=== PATIENT | male | born 1955 | race Caucasian/White ===

== ENCOUNTER 2020-11-25 06:45 | Outpatient (RCR) | payer OTHER, SELFPAY ==
[2015-05-02 16:17] VITALS: BMI 39.6
[2020-11-25] MEDS: COVID-19 VACC, MRNA(PFIZER)/PF 30 MCG/0.3 ML SYRINGE IM (14:32)
[2020-12-16] MEDS: COVID-19 VACC, MRNA(PFIZER)/PF 30 MCG/0.3 ML SYRINGE IM (14:13)
== END 2021-02-21 23:59 ==
LOC: IMMUN 06:45
PROVIDERS: PCP Family Medicine; Referring Provider Family Medicine; Visit Provider Family Medicine
DX: Z23 Encounter for immunization (principal)
CPT/HCPCS: 0001A; 0002A; 91300

== ENCOUNTER 2021-07-04 06:24 | Day surgery (SDC) | payer OTHER, SELFPAY ==
[2021-07-04 06:51] VITALS: BP 116/69; PULSE 96; RESP 18; TEMP 36.6; O2SAT 100; BMI 36.0
[2021-07-04] MEDS: Lactated Ringers 1,000 ML 100 ML IV (07:02)
--- NOTE | 2021-07-04 07:30 | COLBX_PTH ---
PATIENT: HAILEY CEDILLO LOC: EN U#:[id number] AGE/SX: 66/M ROOM: RE07/04/[address]: Dr. Landon Haddad MD : 1955 BED: DIS: 07/04/2021 SPEC #: [id number] RECD: 07/04/21 11:39 STATUS: SEBASTIÁN REAfshan #: [id number] STELLA: 07/04/21 07:[address]: Landon Haddad DEPT: SURGICAL PATHOLOGY RECD BY: Jerrica Nath ENTERED: 07/04/21 12:56 SP TYPE: COLON BX OTHR DR: Dr. Cira Long MD Tissues: Sigmoid colon biopsy Procedures: Surgery Specimen Level IV HEADER OPERATION: Colonoscopy ? open access (MAC) PRE-OP DIAGNOSIS: Screening TISSUE SUBMITTED: Biopsy of sigmoid polyp MICROSCOPIC DIAGNOSIS Sigmoid polyp, biopsy: Tubular adenoma. SJ:mati 07/05/2021 MICROSCOPIC DESCRIPTION Slides are reviewed. GROSS DESCRIPTION Received in fixative is one container labeled with the patient's name and designated sigmoid polyp. The specimen consists of one irregular fragment of light haas soft tissue that measures 0.5 x 0.5 x 0.1 cm. The specimen is totally submitted in one cassette. / AM:mati 07/04/21 TC:1 CPT: 24663
[2021-07-04 07:55] VITALS: BP 113/82; BP 116/69; PULSE 78; RESP 16; TEMP 36.2; O2SAT 93
--- NOTE | 2021-07-04 07:58 | HP.PCM_ITS ---
HPI - General HPI Narrative HAILEY CEDILLO, is a 66 M who presents for screening colonoscopy. Patient has never had a colonoscopy in the past. He denies any abdominal pain or blood in his stool. He has no family history of colon cancer. [facility] Medical History (Updated 06/29/21 @ 10:34 by Angela Kidd) Atherosclerotic heart disease of [place] coronary artery without angina pectoris Back pain Cardiology follow-up encounter Diabetes Essential hypertension First degree AV block High cholesterol History of stress test Hypertension Hypothyroidism Non-smoker Presence of stent in coronary artery (~07/02/06) Pure hypercholesterolemia Thyroid disease Type 2 diabetes mellitus Wears glasses Home Medications aspirin 81 mg tablet,delayed release 81 mg PO DAILY #1 tab 03/02/21 [Rx Last Taken Unknown] levothyroxine 125 mcg tablet 125 mcg PO DAILY #1 tab 03/02/21 [Rx Last Taken 07/04/21 05:45 125 mcg] metoprolol succinate 50 mg tablet,extended release 24 hr 50 mg PO DAILY #1 tab 03/02/21 [Rx Last Taken 07/04/21 05:45 50 mg] nitroglycerin 0.4 mg sublingual tablet 0.4 mg SUBLINGUAL Q5-15M PRN #1 tab 03/16/21 [Rx Last Taken Unknown] atorvastatin 80 mg tablet 40 mg PO QHS #90 tab 05/10/21 [Rx Last Taken Unknown] lisinopril 20 mg-hydrochlorothiazide 12.5 mg tablet 1 tab PO DAILY #90 tab 05/10/21 [Rx Last Taken Unknown] Allergy/AdvReac Type Severity Reaction Status Date / Time Penicillins Allergy Unknown Unknown Verified 07/04/21 06:48 Family History Mother Diabetes Brother CAD (coronary artery disease) History of coronary artery bypass surgery, Onset Age: 44 Father CAD (coronary artery disease) Stents Hypertension Sister Multiple sclerosis Surgical History (Updated 06/29/21 @ 10:34 by Angela Kidd) History of cardiac catheterization History of vasectomy Presence of coronary angioplasty implant and graft (~07/02/06) Social History (Updated 04/24/21 @ 13:14 by Arpita Walker) Smoking Status: Never smoker alcohol intake: current details: occasional substance use type: does not use caffeine: Yes what type of physical activity do you participate in: walking Past Medical/Surgical History Planned Operation Planned Operative Procedure/s: CSCOPE Previous Hospitalizations/Surgeries HX Hospitalizations: No Any Problems With Anesthesia: No You/Your Family Experience Fever (Hyperthermia) With Anes: No Cholinesterase deficiency: No Cardiovascular Hx Hypertension: Yes (CONTROLLED WITH MED) Respiratory Hx Sleep Apnea: No Hx Respiratory Tract Infection/Cold (presently): No Do You Snore Loudly (louder than talking or can be heard): No Do You Often Feel Tired/ Fatigued/ Sleepy [place] Daytime?: No Has Anyone Observed You Stop Breathing During Sleep?: No Result (for STOP score): Negative Smoking Status: Never smoker Gastrointestinal Special diet followed at home: No Neurological Does patient have nerve stimulator: No Blood Disorder Hx High Cholesterol: Yes Reproduction : No Miscellaneous Recent Exposure to Contagious Disease: No Allergies Penicillins Allergy (Unknown, Verified 07/04/21 06:48) Unknown Discharge Is Pt Admitted From a Jail, or a Half-Way: No After D/C, Where Do you Plan to Go: Return Home Vital Signs Vital Signs Vital Signs: 07/04/21 06:50 07/04/21 06:51 Temperature 97.8 F Temperature Source Temporal Pulse Rate 96 Respiratory Rate 18 Respiratory Pattern Normal Blood Pressure 116/69 Blood Pressure Mean 84 Blood Pressure Source Monitor Blood Pressure Position Semi-Fowlers Blood Pressure Location Left Arm Pulse Ox 100 Oxygen Delivery Method Room Air Weight Weight: 223 lb 1.725 oz Body Mass Index (BMI) 36.0 Physical Exam Const alert and oriented x3 Resp normal respiratory effort and normal air movement Cardio regular rate and regular rhythm GI soft to palpation, non-tender and non-distended Assessment & Plan Assessment/Plan (1) Colon cancer screening: PLAN: I explained endoscopy in detail to the patient. I explained the risks including but not limited to stroke or heart attack with anesthesia, perforation of the GI tract, bleeding, infection. I explained that any of these could necessitate further emergency surgery. The patient understands and all questions were answered sufficiently. The patient wishes to proceed with procedure. Landon Haddad MD Pager: [facility] [address] [place] [address], [address] [place] [address] Office: Surgery Risks - Colonoscopy Risks Include but are not Limited To: Risks include but are not limited to: Bleeding, perforation requiring further surgery, inability to complete colonoscopy requiring barium enema.
[2021-07-04 08:00] VITALS: BP 116/69; BP 86/72; PULSE 77; RESP 18; O2SAT 95
--- NOTE | 2021-07-04 08:03 | OP.COLON_ITS ---
Patient Name: Daniel Grossman Procedure Date: 07/04/2021 6:56 AM Date of : 1955 Age: 66 Procedure: Colonoscopy Indications: Screening for colorectal malignant neoplasm Providers: Landon Haddad MD Referring MD: Landon Haddad MD Medicines: Monitored Anesthesia Care Patient Profile: This is a 66 year old male. Refer to note in patient chart for documentation of history and physical. Last Colonoscopy: none. The patient's first colonoscopy is today. Complications: No immediate complications. Procedure: Pre-Anesthesia Assessment: - Prior to the procedure, a History and Physical was performed, and patient medications and allergies were reviewed. The patient's tolerance of previous anesthesia was also reviewed. The risks and benefits of the procedure and the sedation options and risks were discussed with the patient. All questions were answered, and informed consent was obtained. Prior Anticoagulants: The patient has taken no previous anticoagulant or antiplatelet agents. After reviewing the risks and benefits, the patient was deemed in satisfactory condition to undergo the procedure. After I obtained informed consent, the scope was passed under direct vision. Throughout the procedure, the patient's blood pressure, pulse, and oxygen saturations were monitored continuously. The pediatric colonoscope was introduced through the anus and advanced to the cecum, identified by appendiceal orifice and ileocecal valve. The colonoscopy was performed without difficulty. The patient tolerated the procedure well. The quality of the bowel preparation was good. Scope In: 7:41:59 AM Scope Withdrawal Time 0 hours 6 minutes 1 second Scope Out: 7:53:09 AM Total Procedure Duration Time 0 hours 11 minutes 10 seconds Findings: A small polyp was found in the sigmoid colon. The polyp was removed with a cold biopsy forceps. Resection and retrieval were complete. The exam was otherwise without abnormality on direct and retroflexion views. Impression: - One small polyp in the sigmoid colon, removed with a cold biopsy forceps. Resected and retrieved. - The examination was otherwise normal on direct and retroflexion views. Recommendation: - Discharge patient to home. - Resume previous diet. - Continue present medications. - Await pathology results. - Repeat colonoscopy for surveillance based on pathology results. Procedure Code(s): --- Professional --- 45211, Colonoscopy, flexible; with biopsy, single or multiple Diagnosis Code(s): --- Professional --- Z12.11, Encounter for screening for malignant neoplasm of colon D12.5, Benign neoplasm of sigmoid colon CPT copyright 2017 [employer]. All rights reserved. The codes documented in this report are preliminary and upon pharmacy services representative review may be revised to meet current compliance requirements. Landon Haddad MD 07/04/2021 8:02:52 AM This report has been signed electronically. Number of Addenda: 0 Note Initiated On: 07/04/2021 6:56 AM
--- NOTE | 2021-07-04 08:04 | OP.CCLET_ITS ---
07/04/2021 Cira Long [facility] [address] [place] [address] Re : Colonoscopy procedure for Daniel Grossman Dear Dr. Long This procedure was performed on Sunday, July 04, 2021. My impressions and recommendations are as follows: Impressions : - One small polyp in the sigmoid colon, removed with a cold biopsy forceps. Resected and retrieved. - The examination was otherwise normal on direct and retroflexion views. Recommendations : - Discharge patient to home. - Resume previous diet. - Continue present medications. - Await pathology results. - Repeat colonoscopy for surveillance based on pathology results. My findings are described in the full procedure note, which is enclosed. If I can be of further assistance, please feel free to contact me at Doctor phone number(s): , Work: . Sincerely, Landon Haddad MD 07/04/2021 8:02:52 AM This report has been signed electronically.
[2021-07-04 08:05] VITALS: BP 116/69; BP 88/59; PULSE 78; RESP 18; O2SAT 95
[2021-07-04 08:10] VITALS: BP 116/69; BP 94/64; PULSE 74; RESP 18; TEMP 36.6; O2SAT 95
[2021-07-04 08:35] VITALS: BP 116/69
== END 2021-07-04 08:36 ==
LOC: EN 06:28 → AC 06:28
PROVIDERS: PCP Internal Medicine; Referring Provider Surgery; Visit Provider Surgery
PROC: 0DJD8ZZ Inspection of Lower Intestinal Tract, Via Natural or Artificial Opening Endoscopic (ICD-10-PCS; CPT 45378; principal; 2021-07-04 07:25)
DX: Z12.11 Encounter for screening for malignant neoplasm of colon (principal); D12.5 Benign neoplasm of sigmoid colon; I25.10 Atherosclerotic heart disease of native coronary artery without angina pectoris; E11.9 Type 2 diabetes mellitus without complications; I10 Essential (primary) hypertension; E78.00 Pure hypercholesterolemia, unspecified; E03.9 Hypothyroidism, unspecified; Z79.82 Long term (current) use of aspirin; Z79.890 Hormone replacement therapy; Z79.899 Other long term (current) drug therapy; Z95.5 Presence of coronary angioplasty implant and graft
CPT/HCPCS: 45380; 88305; J7120; J2405

== ENCOUNTER 2021-12-11 09:23 | Outpatient (CLI) | payer OTHER, SELFPAY ==
[2021-12-11 12:13] LABS: Absolute Lymphocyte Count 2.77 X10^3/uL (0.83-4.51); Absolute Neutrophil Count 5.6 X10^3/uL (2.0-7.7); Basophil# 0.08 X10^3/uL; Basophil% 0.8 % (0-1); Eosinophil# 0.43 X10^3/uL; Eosinophils% 4.5 % (0-5); Hematocrit 45.3 % (40-54); Hemoglobin 14.7 g/dL (13.0-16.5); Lymphocyte # 2.77 X10^3/ul (0.83-4.51); Lymphocyte % 28.9 % (19-41); Mean Corp Hgb Conc 32.5 g/dL (32-36); Mean Corpuscular Hgb 28.8 pg (27.0-32.0); Mean Corpuscular Volume 88.6 fL (80-94); Mean Platelet Vol. 10.9 fl (6.2-12.0); Monocyte# 0.71 X10^3/uL; Monocyte% 7.4 % (0-10); NRBC Flagged by Analyzer 0 % (0-5); Neutrophil # 5.56 X10^3/uL (2.7-7.7); Neutrophil % 58.1 % (47-70); Platelet Count 380 K/mm3 (150-450); RBC Distribution Width SD 45.6 fl (35.1-43.9); Red Blood Count 5.11 M/mm3 (4.6-6.2); White Blood Count 9.6 K/mm3 (4.4-11.0)
[2021-12-11 12:44] LABS: Vitamin D,25 Hydroxy 34.7 ng/mL
[2021-12-11 12:48] LABS: Cholesterol 148 mg/dL (200); High Density Lipoprotein 42 mg/dL; Triglycerides 129 mg/dL; Very Low Density Lipoprotein 26 mg/dL (5-40)
[2021-12-11 12:49] LABS: Hemoglobin A1c 6.6 % (3.8-5.6)
[2021-12-11 13:18] LABS: ALB/GLOB Ratio 0.8 RATIO (0.9-2.4); AST(SGOT) 22 U/L (15-37); Alanine Aminotransfer ALT/SGPT 46 U/L (16-61); Albumin, Serum 3.3 g/dL (3.2-5.0); Alkaline Phosphatase 85 U/L (45-117); Anion Gap 6 (5-15); BUN 22 mg/dL (7-18); BUN/Creat Ratio 14.8 RATIO (10-20); Bilirubin, Direct 0.12 mg/dL (0.00-0.30); Calcium,Total 9.1 mg/dL (8.5-10.1); Chloride 106 mmol/L (98-107); Creatinine, Serum 1.49 mg/dL (0.70-1.30); EST Glomerular Filtration Rate 50 mL/min (>60); Est Glom Filt Rate - Afr Amer 61 mL/min (>60); Globulin 3.9 g/dL (2.2-4.2); Glucose 136 mg/dL (74-106); PSA,Total - Annual Screen 3.38 ng/mL (0.00-4.00); Potassium 4.3 mmol/L (3.5-5.1); Protein, Total 7.2 g/dL (6.4-8.2); Sodium Level 140 mmol/L (136-145); Thyroid Stim Hormone (TSH) 0.72 uIU/mL (0.358-3.74)
== END 2021-12-11 23:59 | disposition home or self-care (01) ==
LOC: BIMLAB 09:23
PROVIDERS: Internal Medicine Cardiovascular Disease; PCP Internal Medicine; Referring Provider Internal Medicine; Visit Provider Internal Medicine
DX: E03.9 Hypothyroidism, unspecified (principal); E11.9 Type 2 diabetes mellitus without complications; I10 Essential (primary) hypertension; I25.10 Atherosclerotic heart disease of native coronary artery without angina pectoris; E78.00 Pure hypercholesterolemia, unspecified; Z95.5 Presence of coronary angioplasty implant and graft; Z12.5 Encounter for screening for malignant neoplasm of prostate
CPT/HCPCS: 36415; 80053; 80061; 82248; 82306; 83036; 84153; 84443; 85025; G0103

== ENCOUNTER → 2023-08-20 | Outpatient (CLI) | payer BC, SELFPAY ==
[2023-08-20 11:29] LABS: Absolute Lymphocyte Count 3.19 X10^3/uL (0.83-4.51); Basophil# 0.09 X10^3/uL; Basophil% 0.8 % (0-1); Eosinophil# 0.48 X10^3/uL; Eosinophils% 4.1 % (0-5); Hematocrit 46.9 % (40-54); Hemoglobin 14.8 g/dL (13.0-16.5); Lymphocyte # 3.19 X10^3/ul (0.83-4.51); Lymphocyte % 27.4 % (19-41); Mean Corp Hgb Conc 31.6 g/dL (32-36); Mean Corpuscular Hgb 27.7 pg (27.0-32.0); Mean Corpuscular Volume 87.8 fL (80-94); Mean Platelet Vol. 10.4 fl (6.2-12.0); Monocyte# 0.79 X10^3/uL; Monocyte% 6.8 % (0-10); NRBC Flagged by Analyzer 0 % (0-5); Neutrophil # 7.03 X10^3/uL (2.7-7.7); Neutrophil % 60.3 % (47-70); Platelet Count 407 K/mm3 (150-450); RBC Distribution Width CV 14.8 % (11.6-14.6); RBC Distribution Width SD 47.9 fl (35.1-43.9); Red Blood Count 5.34 M/mm3 (4.6-6.2); White Blood Count 11.7 K/mm3 (4.4-11.0)
[2023-08-20 11:52] LABS: Vitamin D,25 Hydroxy 52.7 ng/mL
[2023-08-20 12:01] LABS: ALB/GLOB Ratio 0.8 RATIO (0.9-2.4); AST(SGOT) 23 U/L (15-37); Alanine Aminotransfer ALT/SGPT 35 U/L (16-61); Albumin, Serum 3.3 g/dL (3.2-5.0); Alkaline Phosphatase 92 U/L (45-117); Anion Gap 3 (5-15); BUN 22 mg/dL (7-18); BUN/Creat Ratio 14.8 RATIO (10-20); Calcium,Total 9.1 mg/dL (8.5-10.1); Chloride 106 mmol/L (98-107); Cholesterol 145 mg/dL (200); Creatinine, Serum 1.49 mg/dL (0.70-1.30); EST Glomerular Filtration Rate 50 mL/min (>60); Est Glom Filt Rate - Afr Amer 60 mL/min (>60); Free T3 2.1 pg/mL (2.18-3.98); Globulin 4.1 g/dL (2.2-4.2); Glucose 133 mg/dL (74-106); High Density Lipoprotein 45 mg/dL; PSA,Total - Annual Screen 2.69 ng/mL (0.00-4.00); Potassium 3.9 mmol/L (3.5-5.1); Protein, Total 7.4 g/dL (6.4-8.2); Sodium Level 138 mmol/L (136-145); T4 Free Direct 1.21 ng/dL (0.76-1.46); Thyroid Stim Hormone (TSH) 4.05 uIU/mL (0.358-3.74); Triglycerides 95 mg/dL; Very Low Density Lipoprotein 19 mg/dL (5-40)
[2023-08-20 14:04] LABS: Hemoglobin A1c 6.3 % (3.8-5.6)
== END | disposition home or self-care (01) ==
PROVIDERS: PCP Internal Medicine; Referring Provider Internal Medicine; Visit Provider Internal Medicine
DX: E11.65 Type 2 diabetes mellitus with hyperglycemia (principal); I10 Essential (primary) hypertension; E78.00 Pure hypercholesterolemia, unspecified; E03.9 Hypothyroidism, unspecified; E55.9 Vitamin D deficiency, unspecified; Z13.220 Encounter for screening for lipoid disorders; Z12.5 Encounter for screening for malignant neoplasm of prostate; Z95.5 Presence of coronary angioplasty implant and graft
CPT/HCPCS: 36415; 80053; 80061; 82306; 83036; 84153; 84439; 84443; 84481; 85025; G0103

== ENCOUNTER → 2024-10-07 | Outpatient (CLI) | payer BC, SELFPAY ==
[2024-10-07 16:54] LABS: Absolute Lymphocyte Count 2.39 X10^3/uL (0.83-4.51); Absolute Neutrophil Count 6.1 X10^3/uL (2.0-7.7); Basophil# 0.08 X10^3/uL; Basophil% 0.8 % (0-1); Eosinophil# 0.35 X10^3/uL; Eosinophils% 3.6 % (0-5); Hematocrit 45.3 % (40-54); Hemoglobin 14.9 g/dL (13.0-16.5); Lymphocyte # 2.39 X10^3/ul (0.83-4.51); Lymphocyte % 24.9 % (19-41); Mean Corp Hgb Conc 32.9 g/dL (32-36); Mean Corpuscular Hgb 28.3 pg (27.0-32.0); Mean Platelet Vol. 10.2 fl (6.2-12.0); Monocyte% 7.3 % (0-10); NRBC Flagged by Analyzer 0 % (0-5); Neutrophil # 6.05 X10^3/uL (2.7-7.7); Neutrophil % 63.2 % (47-70); Platelet Count 344 K/mm3 (150-450); RBC Distribution Width CV 14.4 % (11.6-14.6); RBC Distribution Width SD 44.8 fl (35.1-43.9); Red Blood Count 5.27 M/mm3 (4.6-6.2); White Blood Count 9.6 K/mm3 (4.4-11.0)
[2024-10-07 17:40] LABS: ALB/GLOB Ratio 0.9 RATIO (0.9-2.4); AST(SGOT) 27 U/L (15-37); Alanine Aminotransfer ALT/SGPT 44 U/L (16-61); Albumin, Serum 3.8 g/dL (3.2-5.0); Alkaline Phosphatase 100 U/L (45-117); Anion Gap 5 (5-15); BUN 28 mg/dL (7-18); BUN/Creat Ratio 19.7 RATIO (10-20); Calcium,Total 9.5 mg/dL (8.5-10.1); Chloride 101 mmol/L (98-107); Creatinine, Serum 1.42 mg/dL (0.70-1.30); EST Glomerular Filtration Rate 53 mL/min (>60); Est Glom Filt Rate - Afr Amer 64 mL/min (>60); Globulin 4.1 g/dL (2.2-4.2); Glucose 126 mg/dL (74-106); PSA,Total - Annual Screen 2.89 ng/mL (0.00-4.00); Potassium 4.8 mmol/L (3.5-5.1); Protein, Total 7.9 g/dL (6.4-8.2); Sodium Level 136 mmol/L (136-145)
[2024-10-07 18:02] LABS: Hepatitis C Antibody Non-Reactive (Nonreactive)
[2024-10-07 18:44] LABS: Microalbumin,Random Urine < 5.0 mg/L (NO RANGE EST.)
[2024-10-07 18:52] LABS: Hemoglobin A1c 6.4 % (3.8-5.6)
== END | disposition home or self-care (01) ==
LOC: LAB 16:09
PROVIDERS: PCP Family Medicine Geriatric Medicine; Referring Provider Internal Medicine Cardiovascular Disease; Visit Provider Internal Medicine Cardiovascular Disease
DX: E11.65 Type 2 diabetes mellitus with hyperglycemia (principal); I10 Essential (primary) hypertension; E03.9 Hypothyroidism, unspecified; Z13.89 Encounter for screening for other disorder; Z12.5 Encounter for screening for malignant neoplasm of prostate
CPT/HCPCS: 36415; 80053; 82043; 82570; 83036; 84153; 84443; 85025; 86803; G0103

== ENCOUNTER → 2025-03-25 | Outpatient (CLI) | payer BC, SELFPAY ==
[2025-03-25 10:49] LABS: Hematocrit 42.9 % (40-54); Hemoglobin 14.5 g/dL (13.0-16.5); Immature Granulocytes Count 0.040 X10^3/uL (0.0-0.0); Mean Corp Hgb Conc 33.8 g/dL (32-36); Mean Corpuscular Volume 84.4 fL (80-94); Mean Platelet Vol. 10.6 fl (6.2-12.0); NRBC Flagged by Analyzer 0 % (0-5); Platelet Count 342 K/mm3 (150-450); RBC Distribution Width CV 14.6 % (11.6-14.6); RBC Distribution Width SD 45.0 fl (35.1-43.9); Red Blood Count 5.08 M/mm3 (4.6-6.2); White Blood Count 10.3 K/mm3 (4.4-11.0)
[2025-03-25 12:40] LABS: AST(SGOT) 29 U/L (<=37); Alanine Aminotransfer ALT/SGPT 30 U/L (<=46); Albumin, Serum 4.2 g/dL (3.4-4.8); Alkaline Phosphatase 79 U/L (40-129); Anion Gap 12 (5-15); BUN 33 mg/dL (4-19); BUN/Creat Ratio 21.0 RATIO (10-20); Calcium,Total 9.6 mg/dL (7.6-11.0); Carbon Dioxide 23.5 mmol/L (21.0-32.0); Chloride 105 mmol/L (98-108); Globulin 3.3 g/dL (2.2-4.2); Glucose 127 mg/dL (70-99); Potassium 4.1 mmol/L (3.3-5.1); Vitamin D,25 Hydroxy 38.3 ng/mL (30-100)
--- OUTSIDE RECORDS SUMMARY | 2025-03-25 19:42 | XMS RPT_ITS | CCD ---
Author Organization [facility] Care Team Providers Care Sales Route Driver Name Role Phone THEE MAHONEY Unavailable Unavailable CAROLE, JAMEY Unavailable Unavailable CAROLE, JAMEY Unavailable Unavailable CEJANELLEL THEE Unavailable Unavailable CAROLE, JAMEY Unavailable Unavailable CAROLE, JAMEY Unavailable Unavailable CAROLE, JAMEY E Unavailable Unavailable CAROLE JAMEY E Unavailable Unavailable Maru LOPEZ MD, Frank A Primary Care Provider Adri vailable Dr. Cira Long Primary Care Provider Dr. Cira Long Attending Provider [phone] Dr. Cira Long Referring Provider [phone] Dr. Cira Long Primary Care Provider Dr. Cira Long Attending Provider THEE MAHONEY III Referring Unavailable THEE MAHONEY III Primary Care Unavailable Cira Long Primary Care Unavailable Cira Long Referring Unavailable Nicholas Lopez Attending Unavailable Nicholas Lopez Referring Unavailable Nick, Raz John Primary Care Unavailable Nick, Raz Chi Consulting Unavailable Nicholas Lopez Attending Unavailable Allergies Allergy Classification Reported Allergen(s) Allergy Type Date of Onset Reaction(s) Facility (6 sources) Penicillins; Translations: [PENICILLINS] Propensity to adverse reactions (disorder) 6 Unknown [facility] Medications Current Medications Medication Drug Class(es) Dates Sig (Normalized) Sig (Original) aspirin 81 mg delayed release oral tablet (3 sources) Platelet Aggregation Inhibitor, Nonsteroidal Anti-inflammatory Drug Start: 03-02-2021 Aspirin (Adult Low Dose Aspirin) 81 mg tablet,delayed release (/EC) Active 81 MG PO DAILY March 02, 2021 10:00am Start: 06-24-2006 ASPIRIN 81 MG TAB Indications: Nonspecific abnormal unspecified cardiovascular function study , Chest pain, unspecified Take one (1) tablet daily . 0 0 06/24/2006 Active Comment on above: Take one (1) tablet daily . atorvastatin 80 mg oral tablet (9 sources) HMG-CoA Reductase Inhibitor Start: End: take 40 mg by mouth at bedtime Atorvastatin Active 40 MG PO AT BEDTIME August 13, 2023 2:15pm Start: 03-02-2021 End: 04-24-2021 take 80 mg by mouth at bedtime Atorvastatin Discontinu ed 80 MG PO AT BEDTIME March 02, 2021 9:58am April 24, 2021 1:10pm Start: 10-14-2020 take 0.5 tablet by m outh once daily atorvastatin (LIPITOR) 80 mg tablet Take 0.5 tablets by mouth once daily. 45 tablet 1 10/14/2020 Active Comment on above: Take 0.5 tablets by mouth once daily. hydroCHLOROthiazide 12.5 mg / lisinopril 20 mg oral tablet (9 sources) Thiazide Diuretic, Angiotensin Converting Enzyme Inhibitor Start: End: take 1 tablet by mouth once daily Lisinopril-Hydrochlo rothiazide Active 1 TABLET PO DAILY August 13, 2023 2:15pm levothyroxine sodium 0.125 mg oral tablet (8 sources) l-Thyroxine Start: End: take 125 ug by mouth once daily Levothyroxine Active 125 MCG PO DAILY August 13, 2023 2:15pm Comment on above: TAKE 1 TABLET BY CARLY TH ONCE DAILY. TAKE ON EMPTY STOMACH. FOR THYROID. TAKE 1 TABLET BY CARLY TH ONCE DAILY. TAKE ON EMPTY STOMACH. FOR THYROID nitroglycerin 0.4 mg sublingual tablet (4 sources) Nitrate Vasodilator Start: End: Nitroglycerin Active 0.4 MG SL every 5 to 15 minutes March 16, 2021 10:19am do not exceed 3 doses per episode Completed/Discontinued Medications Medication Drug Class(es) Dates Sig (Normalized) Sig (Original) amLODIPine 5 mg oral tablet (5 sources) Dihydropyridine Calcium Channel Marco A Start: 07-05-2020 End: 08-19-2023 take 5 mg by mouth once daily Amlodipine Discontinued 5 MG PO DAILY July 14, 2021 10:31am August 19, 2023 1:02pm Comment on above: Take 1 tablet by carly th once daily. lisinopril 20 mg oral tablet (1 source) Angiotensin Converting Enzyme Inhibitor Start: 07-05-2020 take 1 tablet by mouth once daily lisinopril (ZESTRIL, PRINIVIL) 20 mg tablet Take 1 tablet by mouth once daily. 30 tablet 11 07/05/2020 Active Comment on above: Take 1 tablet by carly th once daily. 24 hr metoprolol succinate 50 mg extended release oral tablet (5 sources) beta-Adrenergic Marco A Start: 10-14-2020 End: 08-19-2023 take 50 mg by mouth once daily Metoprolol Succinate Discontinued 50 MG PO DAILY November 09, 2021 12:35pm August 19, 2023 1:02pm Comment on above: Take 1 tablet by carly th once daily. nystatin 305373 unt/ml / triamcinolone acetonide 1 mg/ml topical cream (2 sources) Polyene Antifungal, Corticosteroid Start: 05-02-2015 End: 03-16-2021 Nystatin-Triamcin olone Discontinued 1 APPLIC TOPICAL TWICE A DAY May 02, 2015 4:42pm March 16, 2021 10:52am sertraline 25 mg oral tablet (1 source) Serotonin Reuptake Inhibitor Start: 07-11-2020 take 1 tablet by mouth once daily sertraline (ZOLOFT) 25 mg tablet Indications: Situational anxiety Take 1 tablet by mouth once daily. 30 tablet 11 07/11/2020 Active Comment on above: Take 1 tablet by carly th once daily. Problems Active Problems Problem Classification Problem Date Documented Date Episodic/Chronic Anxiety disorders (1 source) Anxiety; Translations: [Other specified anxiety disorders] Onset: 07-11-2020 07-11-2020 Chronic Complications of surgical procedures or medical care (2 sources) Postablative hypothyroidism; Translations: [Postprocedural hypothyroidism] Onset: 12-11-2007 Chronic Conduction disorders (3 sources) First degree atrioventricular block; Translations: [Atrioventricular block, first degree] Onset: 03-17-2024 03-02-2021 Chronic Coronary atherosclerosis and other heart disease (8 sources) Atherosclerotic heart disease of [place] coronary artery without angina pectoris; Translations: [Coronary arteriosclerosis] Onset: 07-26-2016 07-26-2016 Chronic Diabetes mellitus with complications (1 source) Type 2 diabetes mellitus with hyperglycemia; Translations: [Type 2 diabetes mellitus with hyperglycemia] Onset: 10-29-2024 Chronic Diabetes mellitus without complication (7 sources) Type 2 diabetes mellitus without complication; Translations: [Type 2 diabetes mellitus without complications] Onset: 10-30-2017 10-30-2017 Chronic Disorders of lipid metabolism (5 sources) Hyperlipidemia; Translations: [Hyperlipidemia, unspecified] Onset: 07-26-2016 07-26-2016 Chronic Essential hypertension (6 sources) Essential (primary) hypertension; Translations: [Essential hypertension] Onset: 07-26-2016 07-26-2016 Chronic Hyperplasia of prostate (1 source) Benign prostatic hyperplasia; Translations: [Benign prostatic hyperplasia without lower urinary tract symptoms] Onset: 10-30-2017 10-30-2017 Chronic Other nutritional; endocrine; and metabolic disorders (1 source) Metabolic syndrome X; Translations: [Metabolic syndrome] Onset: 12-11-2007 12-11-2007 Chronic Other screening for suspected conditions (not mental disorders or infectious disease) (3 sources) Patient encounter status; Translations: [Encounter for screening for malignant neoplasm of colon] Onset: 11-04-2017 11-04-2017 Episodic Other skin disorders (2 sources) Skin lesion; Translations: [Disorder of the skin and subcutaneous tissue, unspecified] 12-12-2021 Episodic Other skin disorders (2 sources) Disorder of the skin and subcutaneous tissue, unspecified; Translations: [Unspecified disorder of skin and subcutaneous tissue] Episodic Thyroid disorders (5 sources) Hypothyroidism; Translations: [Hypothyroidism, unspecified] Onset: 03-17-2024 Chronic Unclassified (1 source) Unknown / UNK(Unknown) Onset: 07-26-2016 Past or Other Problems Problem Classification Problem Date Documented Da te Episodic/Chronic Coronary atherosclerosis and other heart disease (3 sources) Stented coronary artery; Translations: [Presence of coronary angioplasty implant and graft] Onset: 06-16-2006 03-02-2021 Episodic Results Test Name Value Interpretation Reference Range Facility CBC W/Diff, Automatedon 09-17 Absolute Lymph 2.39 X10 3/uL Normal 0.83-4.51 [facility] Comment on above: Performed By: #### L 3890.6300, L501.9520, L500.4050, L100.0100, L501.9985, L501.9910, L502.0250 #### [facility] [address] [place], [address] Absolute Neut 6.1 X10 3/uL Normal 2.0-7.7 [facility] Comment on above: Performed By: #### L 3890.6300, L501.9520, L500.4050, L100.0100, L501.9985, L501.9910, L502.0250 #### [facility] [address] [place], [address] Basophils/100 WBC (Bld) 0.8 % Normal 0-1 [facility] Comment on above: Performed By: #### L 3890.6300, L501.9520, L500.4050, L100.0100, L501.9985, L501.9910, L502.0250 #### [facility] [address] [place], [address] Eosinophils/100 WBC (Bld) 3.6 % Normal 0-5 [facility] Comment on above: Performed By: #### L 3890.6300, L501.9520, L500.4050, L100.0100, L501.9985, L501.9910, L502.0250 #### [facility] [address] [place], [address] Erythrocyte distribution width (RBC) [Ratio] 14.4 % Normal 11.6-14.6 [facility] Comment on above: Performed By: #### L 3890.6300, L501.9520, L500.4050, L100.0100, L501.9985, L501.9910, L502.0250 #### [facility] [address] [place], [address] Hematocrit (Bld) [Volume fraction] 45.3 % Normal 40-54 [facility] Comment on above: Performed By: #### L 3890.6300, L501.9520, L500.4050, L100.0100, L501.9985, L501.9910, L502.0250 #### [facility] [address] [place], [address] Hemoglobin (Bld) [Mass/Vol] 14.9 g/dL Normal 13.0-16.5 [facility] Comment on above: Performed By: #### L 3890.6300, L501.9520, L500.4050, L100.0100, L501.9985, L501.9910, L502.0250 #### [facility] [address] [place], [address] IG% 0.200 Normal 0.0-0.9 [facility] Comment on above: Result Comment: IG% - Immature Granulocytes (promyelocytes, myelocytes and metamyelocytes) > 1% indicates that a LEFT SHIFT is Present. Performed By: #### L 3890.6300, L501.9520, L500.4050, L100.0100, L501.9985, L501.9910, L502.0250 #### [facility] [address] [place], [address] Lymphocytes/100 WBC (Bld) 24.9 % Normal 19-41 [facility] Comment on above: Performed By: #### L 3890.6300, L501.9520, L500.4050, L100.0100, L501.9985, L501.9910, L502.0250 #### [facility] [address] [place], [address] MCH (RBC) [Entitic mass] 28.3 pg Normal 27.0-32.0 [facility] Comment on above: Performed By: #### L 3890.6300, L501.9520, L500.4050, L100.0100, L501.9985, L501.9910, L502.0250 #### [facility] [address] [place] [place], [address] MCHC (RBC) [Mass/Vol] 32.9 g/dL Normal 32-36 [facility] Comment on above: Performed By: #### L 3890.6300, L501.9520, L500.4050, L100.0100, L501.9985, L501.9910, L502.0250 #### [facility] [address] [place], [address] MCV (RBC) [Entitic vol] 86.0 fL Normal 80-94 [facility] Comment on above: Performed By: #### L 3890.6300, L501.9520, L500.4050, L100.0100, L501.9985, L501.9910, L502.0250 #### [facility] [address] [place] [place], [address] Monocytes/100 WBC (Bld) 7.3 % Normal 0-10 [facility] Comment on above: Performed By: #### L 3890.6300, L501.9520, L500.4050, L100.0100, L501.9985, L501.9910, L502.0250 #### [facility] [address] [place], [address] Neutrophils/100 WBC (Bld) 63.2 % Normal 47-70 [facility] Comment on above: Performed By: #### L 3890.6300, L501.9520, L500.4050, L100.0100, L501.9985, L501.9910, L502.0250 #### [facility] [address] [place], [address] Nucleated RBC (Bld) [#/Vol] 0 10*3/uL Normal 0-5 [facility] Comment on above: Performed By: #### L 3890.6300, L501.9520, L500.4050, L100.0100, L501.9985, L501.9910, L502.0250 #### [facility] [address] [place], [address] Platelet mean volume (Bld) [Entitic vol] 10.2 fL Normal 6.2-12.0 [facility] Comment on above: Performed By: #### L 3890.6300, L501.9520, L500.4050, L100.0100, L501.9985, L501.9910, L502.0250 #### [facility] [address] [place], [address] Platelets (Bld) [#/Vol] 344 10*3/uL Normal 150-450 [facility] Comment on above: Performed By: #### L 3890.6300, L501.9520, L500.4050, L100.0100, L501.9985, L501.9910, L502.0250 #### [facility] [address] [place] [place], [address] RBC (Bld) [#/Vol] 5.27 10*6/uL Normal 4.6-6.2 [facility] Comment on above: Performed By: #### L 3890.6300, L501.9520, L500.4050, L100.0100, L501.9985, L501.9910, L502.0250 #### [facility] [address] [place], [address] RDW SD 44.8 fl High 35.1-43.9 [facility] Comment on above: Performed By: #### L 3890.6300, L501.9520, L500.4050, L100.0100, L501.9985, L501.9910, L502.0250 #### [facility] [address] [place], [address] WBC (Bld) [#/Vol] 9.6 10*3/uL Normal 4.4-11.0 [facility] Comment on above: Performed By: #### L 3890.6300, L501.9520, L500.4050, L100.0100, L501.9985, L501.9910, L502.0250 #### [facility] [address] [place], [address] Comprehensive Metabolic Prof ilon 10-07-2024 Albumin [Mass/Vol] 3.8 g/dL Normal 3.2-5.0 [facility] Comment on above: Performed By: #### L 3890.6300, L501.9520, L500.4050, L100.0100, L501.9985, L501.9910, L502.0250 #### [facility] [address] [place], [address] Albumin/Globulin [Mass ratio] 0.9 {ratio} Normal 0.9-2.4 [facility] Comment on above: Performed By: #### L 3890.6300, L501.9520, L500.4050, L100.0100, L501.9985, L501.9910, L502.0250 #### [facility] [address] [place], [address] ALK P 100 U/L Normal 45-117 [facility] Comment on above: Performed By: #### L 3890.6300, L501.9520, L500.4050, L100.0100, L501.9985, L501.9910, L502.0250 #### [facility] [address] [place], [address] ALT [Catalytic activity/Vol] 44 U/L Normal 16-61 [facility] Comment on above: Performed By: #### L 3890.6300, L501.9520, L500.4050, L100.0100, L501.9985, L501.9910, L502.0250 #### [facility] [address] [place], [address] AST [Catalytic activity/Vol] 27 U/L Normal 15-37 [facility] Comment on above: Performed By: #### L 3890.6300, L501.9520, L500.4050, L100.0100, L501.9985, L501.9910, L502.0250 #### [facility] [address] [place], [address] Bilirubin [Mass/Vol] 0.50 mg/dL Normal 0.20-1.00 [facility] Comment on above: Result Comment: For patients on eltrombopag therapy, use of Dimension [place] TBIL is not recommended. Performed By: #### L 3890.6300, L501.9520, L500.4050, L100.0100, L501.9985, L501.9910, L502.0250 #### [facility] [address] [place], [address] BUN/CRE 19.7 RATIO Normal 10-20 [facility] Comment on above: Performed By: #### L 3890.6300, L501.9520, L500.4050, L100.0100, L501.9985, L501.9910, L502.0250 #### [facility] [address] [place], [address] CA,Total 9.5 mg/dL Normal 8.5-10.1 [facility] Comment on above: Performed By: #### L 3890.6300, L501.9520, L500.4050, L100.0100, L501.9985, L501.9910, L502.0250 #### [facility] [address] [place], [address] Chloride [Moles/Vol] 101 mmol/L Normal 98-107 [facility] Comment on above: Performed By: #### L 3890.6300, L501.9520, L500.4050, L100.0100, L501.9985, L501.9910, L502.0250 #### [facility] [address] [place], [address] CO2 [Moles/Vol] 30.0 mmol/L Normal 21.0-32.0 [facility] Comment on above: Performed By: #### L 3890.6300, L501.9520, L500.4050, L100.0100, L501.9985, L501.9910, L502.0250 #### [facility] [address] [place], [address] Creatinine [Mass/Vol] 1.42 mg/dL High 0.70-1.30 [facility] Comment on above: Result Comment: The validity of the calculated GFR GFRAA in patients over 70 years has not been determined. Clinical correlation is essential. Performed By: #### L 3890.6300, L501.9520, L500.4050, L100.0100, L501.9985, L501.9910, L502.0250 #### [facility] [address] [place], [address] EST GFR - AA 64 mL/min Normal >60 [facility] Comment on above: Result Comment: Afri can [place] GFR Calc Performed By: #### L 3890.6300, L501.9520, L500.4050, L100.0100, L501.9985, L501.9910, L502.0250 #### [facility] [address] [place], [address] GAP 5 Normal 5-15 [facility] Comment on above: Performed By: #### L 3890.6300, L501.9520, L500.4050, L100.0100, L501.9985, L501.9910, L502.0250 #### [facility] [address] [place], [address] GFR/1.73 sq M.predicted among non-blacks MDRD (S/P/Bld) [Vol rate/Area] 53 mL/min/{1.73_m2} Low >60 [facility] Comment on above: Result Comment: Non- GFR Calc Performed By: #### L 3890.6300, L501.9520, L500.4050, L100.0100, L501.9985, L501.9910, L502.0250 #### [facility] [address] [place], [address] Globulin (S) [Mass/Vol] 4.1 g/dL Normal 2.2-4.2 [facility] Comment on above: Performed By: #### L 3890.6300, L501.9520, L500.4050, L100.0100, L501.9985, L501.9910, L502.0250 #### [facility] [address] [place], [address] Glucose [Mass/Vol] 126 mg/dL High 74-106 [facility] Comment on above: Result Comment: Fast ing Glucose result greater than or equal to 126 mg/dL suggests DIABETES MELLITUS per A.D.A. criteria. Performed By: #### L 3890.6300, L501.9520, L500.4050, L100.0100, L501.9985, L501.9910, L502.0250 #### [facility] [address] [place], [address] Potassium [Moles/Vol] 4.8 mmol/L Normal 3.5-5.1 [facility] Comment on above: Performed By: #### L 3890.6300, L501.9520, L500.4050, L100.0100, L501.9985, L501.9910, L502.0250 #### [facility] [address] [place], [address] Sodium [Moles/Vol] 136 mmol/L Normal 136-145 [facility] Comment on above: Performed By: #### L 3890.6300, L501.9520, L500.4050, L100.0100, L501.9985, L501.9910, L502.0250 #### [facility] [address] [place], [address] T PROT 7.9 g/dL Normal 6.4-8.2 [facility] Comment on above: Performed By: #### L 3890.6300, L501.9520, L500.4050, L100.0100, L501.9985, L501.9910, L502.0250 #### [facility] [address] [place], [address] Urea nitrogen [Mass/Vol] 28 mg/dL High 7-18 [facility] Comment on above: Performed By: #### L 3890.6300, L501.9520, L500.4050, L100.0100, L501.9985, L501.9910, L502.0250 #### [facility] [address] [place], [address] Hemoglobin A1con 10-07-2024 HbA1c (Bld) [Mass fraction] 6.4 % High 3.8-5.6 [facility] Comment on above: Result Comment: Norm al < 5.7 % Prediabetic 5.7 - 6.4 % Diabetic >or= 6.5 % Please note range changes. Performed By: #### L 3890.6300, L501.9520, L500.4050, L100.0100, L501.9985, L501.9910, L502.0250 #### [facility] [address] [place], [place], [address] Hepatitis C Antibodyon 10-07 Hepatitis C AB Non-Reactive Normal Nonreactive [facility] Comment on above: Result Comment: Non Reactive: < 0.8 Equivocal: >/= 0.8 to < 1.0 Reactive: >/= 1.0 The [facility] requires that a reactive/equivocal HCV antibody result be sent out for confirmation. HCV Quant by PCR testing. Performed By: #### L 3890.6300, L501.9520, L500.4050, L100.0100, L501.9985, L501.9910, L502.0250 #### [facility] [address] [place], [address] Microalb:Creat Ratio,Random URon 10-07-2024 Creatinine [Mass/Vol] 109.00 mg/dL Normal NO RANGE EST. [facility] Comment on above: Performed By: #### L 3890.6300, L501.9520, L500.4050, L100.0100, L501.9985, L501.9910, L502.0250 #### [facility] [address] [place], [address] MALB:CRE TNP Normal <30 mg/g CRE [facility] Comment on above: Performed By: #### L 3890.6300, L501.9520, L500.4050, L100.0100, L501.9985, L501.9910, L502.0250 #### [facility] [address] [place], [place], [id number] MICROALBUMIN,UR < 5.0 Normal NO RANGE EST. [facility] Comment on above: Performed By: #### L 3890.6300, L501.9520, L500.4050, L100.0100, L501.9985, L501.9910, L502.0250 #### [facility] [address] [place], [address] PSA,Total - Annual Screenon 10-07-2024 PSA,TOT SCREEN 2.89 ng/mL Normal 0.00-4.00 [facility] Comment on above: Result Comment: This test was performed using the TPSA assay method for the HALGI chemistry system. Values obtained with different assay methods cannot be used interchangably. When changing PSA assays in the course of monitoring a patient, additional sequential testing should be carried out to confirm baseline values. Performed By: #### L 3890.6300, L501.9520, L500.4050, L100.0100, L501.9985, L501.9910, L502.0250 #### [facility] [address] [place], [address] Thyroid Stim Hormone (TSH)on 10-07-2024 TSH 3.040 uIU/mL Normal 0.358-3.740 [facility] Comment on above: Performed By: #### L 3890.6300, L501.9520, L500.4050, L100.0100, L501.9985, L501.9910, L502.0250 #### [facility] [address] [place], [address] 12 Lead EKG performed by [facility] on 03-17-2024 12 Lead EKG performed by [facility] [address] [place] [address] 12 Lead EKG performed by [facility] 03/17/24 0823 MR#: [id number] Acct: [id number] Name: HAILEY GROSSMAN Rep #: [id number] : 1955 68 From: Nicholas Lopez MD Attending Dr: Dr. Nicholas Lopez MD Status: DE P JIMBO Ordering Dr: Nicholas Lopez MD Date: 03/17/24 [place] [facility] [place] M C Ad[place]: [facility]/12 Lead EKG performed by [facility] ECG Report Interpretation Sin us Rhythm WITHIN NORMAL LIMITSElectronically signed on 03/17/2024 at 15:[address] Nicholas Lopez [employer] Software Version [id number] 03/17/24 1525 Date Nicholas Lopez MD CC: Dr. 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 [place] [address] OFFICE VISIT Date of Service: 03/17/24 MR#: [id number] Acct: [id number] Name: HAILEY GROSSMAN Rep #: [id number] : 1955 Provider: Dr. Nicholas harp MD Age/Sex: 68/M Location: [facility] Status: Signed with Addenda ADDENDUM by Dr. Nicholas Lopez MD on 03/17/24 at 1350 HPI History of Present Illness Details: Addendum: EKG in the office today showed a normal sinus rhythm and is within normal limits. Assessment and Plan Assessment and Plan (1) Atherosclerotic heart disease of [place] coronary artery without angina pectoris: Status: Acute Qualifiers: Alutiiq vs. transplanted heart: [place] heart Qualified Code(s): I25.10 - Atherosclerotic heart disease of [place] coronary artery without angina pectoris (2) Hypothyroidism: Status: Acute Qualifiers: Hypothyroidism type: postablative Qualified Code(s): E89.0 - Postprocedural hypothyroidism (3) Type 2 diabetes mellitus: Status: Acute Qualifiers: Diabetes mellitus chcf insulin use: without chcf use Diabetes mellitus complication status: without complication Qualified Code(s): E11.9 - Type 2 diabetes mellitus without complications (4) Pure hypercholesterolemia: Status: Acute Orders: Orders 12 Lead EKG performed by [facility] [place] Today I25.10 - Atherosclerotic heart disease of [place] coronary artery without angina pectoris, I44.0 - Atrioventricular block, first degree CBC-Complete Blood Cnt No Diff 4 Weeks I25.10 - Atherosclerotic heart disease of [place] coronary artery without angina pectoris T4 Total, Thyroxin 4 Weeks I25.10 - Atherosclerotic heart disease of [place] coronary artery without angina pectoris Thyroid Stim Hormone (TSH) 4 Weeks E03.9 - Hypothyroidism, unspecified Comprehensive Metabolic Profil 4 Weeks I25.10 - Atherosclerotic heart disease of [place] coronary artery without angina pectoris Free T3 Today I25.10 - Atherosclerotic heart disease of [place] coronary artery without angina pectoris Hemoglobin A1c Today E11.9 - Type 2 diabetes mellitus without complications Medications: Changed From atorvastatin 40 mg (1/2 x 80 mg) PO QHS 90 tabs 3RF To atorvastatin 80 mg PO QHS 90 tabs 3RF Plan Details Follow Up: 1 Year (With Dr. Lopez and as needed) 03/17/24 1350 Date Nicholas Lopez MD cc: Dr. Cira Long MD * Signed HPI HPI History of Present Illness Details: Patient is a 68-year-old white male that comes in to reestablish in the office. He carries a history of coronary artery disease status post stenting with bare-metal stent to the right coronary and mid LAD at the [facility] in 2005. He also has a history of hypertension diabetes mellitus and hyperlipidemia. He reports he is doing very well in his home environment he works out with weights and does push-ups without any restrictions. 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 He denies any recurrence of his anginal symptoms which was discomfort in his chest that was relieved by stretching his arms over his head. The patient denies any PND orthopnea denies any lower extremity edema denies any syncope or near syncope. He reports he is doing fairly well in his home environment his last blood work done in August 2023 showed creatinine of 1.49 with a GFR of 50 glucose fasting was 135 and hemoglobin A1c 6.3 back in November 2022. His thyroid function studies in August 2023 TSH was mildly elevated as well as the free T4 was depressed. Intake Vital Signs 08/19/23 12:59 03/17/24 13:03 Height 5 ft 5.5 in 5 ft 5.5 in Weight: 224 lb 4 oz 227 lb BMI 36.7 37.2 BP 149/85 H 136/87 H Blood Pressure Location Lt brachial Lt brachial Position Sitting Sitting Respiration 16 18 Pulse 97 69 Pulse Source Monitor Monitor Temp 97.8 F Pulse Oximetry (%) 95 94 Oxygen Delivery Method room air room air Intake Visit Reasons: Re-est (Self) Rehabilitation Therapy Aide Required: No Accompanied by: Self Is patient in pain?: No Allergies Penicillins Allergy (Unknown, Verified 03/17/24 13:05) Unknown Medications ???Medication ???Instructions ???Recorded ???Confirmed ???Type aspirin 81 mg tablet,delayed 81 mg PO DAILY #1 TAB 03/02/21 03/17/24 Rx release (Adult Low Dose Aspirin) levothyroxine 125 mcg tablet 125 mcg PO DAILY #90 tabs 08/13/23 03/17/24 Rx lisinopril 20 1 tab PO DAILY #90 tabs 08/13/23 03/17/24 Rx mg-hydrochlorothiazide 12.5 mg tablet atorvastatin 80 mg tablet 80 mg PO QHS #90 tabs 03/17/24 03/17/24 Rx Have you fallen in the past year?: No [facility] Medical History Diabetes Thyroid disease High cholesterol Back pain Hypertension First degree AV (more content not included)... Normal [facility] Absolute lymphocyte countOrd ered By: Cira Long on 08-20-2023 Lymphocytes Auto (Unsp spec) [#/Vol] 3.19 10*3/uL 0.83-4.51 [facility] Basophil percentageOrdered B y: Cira Long on 08-20-2023 Basophils/100 WBC (Bld) 0.8 % 0-1 [facility] Bilirubin [Mass/Vol] 0.60 mg/dL 0.20-1.00 [facility] Comment on above: For patients on eltr ombopag therapy, use of Dimension [place] TBIL is not recommended. Chloride [Moles/Vol] 106 mmol/L 98-107 [facility] Cholesterol [Mass/Vol] 145 mg/dL <200 [facility] Comment on above: <200 mg/dL Desirable 200-240 mg/dL Borderline >240 mg/dL High Risk Eosinophils/100 WBC (Bld) 4.1 % 0-5 [facility] Glucose [Mass/Vol] 133 mg/dL 74-106 [facility] Comment on above: Fasting Glucose resu lt greater than or equal to 126 mg/dL suggests DIABETES MELLITUS per A.D.A. criteria. Neutrophils (Bld) [#/Vol] 7.0 10*3/uL 2.0-7.7 [facility] Neutrophils/100 WBC (Bld) 60.3 % 47-70 [facility] Potassium [Moles/Vol] 3.9 mmol/L 3.5-5.1 [facility] Protein [Mass/Vol] 7.4 g/dL 6.4-8.2 [facility] Sodium [Moles/Vol] 138 mmol/L 136-145 [facility] Triglyceride [Mass/Vol] 95 mg/dL <199 [facility] Comment on above: The drugs N-Acetylcy steine and Metamizole may falsely depress this assay.Serum Triglycerides Reference Interval Normal <150 mg/dL Borderline high 150 - 199 mg/dL High 200 - 499 mg/dL Very High > or = 500 mg/dL WBC (Bld) [#/Vol] 11.7 10*3/uL 4.4-11.0 [facility] Blood erythrocytes count (nu mber/volume)Ordered By: Cira Long on 08-20-2023 RBC (Bld) [#/Vol] 5.34 10*6/uL 4.6-6.2 [facility] Blood hemoglobin measurement (mass/volume)Ordered By: Cira Long on 08-20-2023 Hemoglobin (Bld) [Mass/Vol] 14.8 g/dL 13.0-16.5 [facility] Blood lymphocytes/100 leukoc ytesOrdered By: Cira Long on 08-20-2023 Lymphocytes/100 WBC (Bld) 27.4 % 19-41 [facility] Blood monocytes/100 leukocyt esOrdered By: Cira Long on 08-20-2023 Monocytes/100 WBC (Bld) 6.8 % 0-10 [facility] Blood platelet mean volumeOr dered By: Cira Long on 08-20-2023 Platelet mean volume (Bld) [Entitic vol] 10.4 fL 6.2-12.0 [facility] Determination of erythrocyte mean corpuscular volume (MCV)Ordered By: Cira Long on 08-20-2023 MCV (RBC) [Entitic vol] 87.8 fL 80-94 [facility] Hematocrit Auto (Bld) [Volum e fraction]Ordered By: Cira Long on 08-20-2023 Hematocrit (Bld) [Volume fraction] 46.9 % 40-54 [facility] Laboratory - Chemistry and C hemistry - challengeOrdered By: Cira Long on 08-20-2023 ALP [Catalytic activity/Vol] 92 U/L 45-117 [facility] ALT [Catalytic activity/Vol] 35 U/L 16-61 [facility] CO2 [Moles/Vol] 29.0 mmol/L 21.0-32.0 [facility] Free T4 [Mass/Vol] 1.21 ng/dL 0.76-1.46 [facility] Globulin (S) [Mass/Vol] 4.1 g/dL 2.2-4.2 [facility] Urea nitrogen/Creatinine [Mass ratio] 14.8 mg/mg 10-20 [facility] Laboratory - Hematology and Cell countsOrdered By: Cira Long on 08-20-2023 Erythrocyte distribution width (RBC) [Entitic vol] 47.9 fL 35.1-43.9 [facility] Erythrocyte distribution width (RBC) [Ratio] 14.8 % 11.6-14.6 [facility] Immature granulocytes/100 WBC (Bld) 0.600 % 0.0-0.9 [facility] Comment on above: IG% - Immature Granu locytes (promyelocytes, myelocytes and metamyelocytes) > 1% indicates that a LEFT SHIFT is Present. MCH (RBC) [Entitic mass] 27.7 pg 27.0-32.0 [facility] Nucleated RBC/100 WBC (Bld) [Ratio] 0 % 0-5 [facility] MCHC Auto (RBC) [Mass/Vol]Or dered By: Cira Long on 08-20-2023 MCHC (RBC) [Mass/Vol] 31.6 g/dL 32-36 [facility] No Panel InformationOrdered By: Cira Long on 08-20-2023 Estimated GFR (MDRD) Amer 60 mL/min >60 [facility] Comment on above: GFR Calc Estimated GFR (MDRD) Non-Af Amer 50 mL/min >60 [facility] Comment on above: Non- GFR Calc Free Triiodothyronine (T3) pg/dL 2.1 pg/mL 2.18-3.98 [facility] Prostate Specific Antigen Screen 2.69 ng/mL 0.00-4.00 [facility] Comment on above: This test was perfor med using the TPSA assay method for [employer] chemistry system. Values obtained with differentassay methods cannot be used interchangably.When changing PSA assays in the course of monitoring apatient, additional sequential testing should be carriedout to confirm baseline values. Thyroid Stimulating Hormone (TSH) 4.05 uIU/mL 0.358-3.74 [facility] Vitamin D 25-Hydroxy 52.7 ng/mL [facility] Comment on above: Vitamin D 25(OH) Sta tus Range Deficiency <20 ng/mL (50nmol/L) Insufficiency 20 - 30 ng/mL (50 - 75 nmol/L) Sufficiency 30 - 100 ng/mL (75 - 250 nmol/L) Toxicity >100 ng/mL (>250 nmol/L) Platelets bldOrdered By: Monique Long on 08-20-2023 Platelets (Bld) [#/Vol] 407 10*3/uL 150-450 [facility] Serum or plasma albumin kia urement (mass/volume)Ordered By: Cira Long on 08-20-2023 Albumin [Mass/Vol] 3.3 g/dL 3.2-5.0 [facility] Serum or plasma albumin/glob ulin mass ratioOrdered By: Cira Long on 08-20-2023 Albumin/Globulin [Mass ratio] 0.8 {ratio} 0.9-2.4 [facility] Serum or plasma calcium kia urement (mass/volume)Ordered By: Cira Long on 08-20-2023 Calcium [Mass/Vol] 9.1 mg/dL 8.5-10.1 [facility] Serum or plasma cholesterol in HDL measurement (mass/volume)Ordered By: Cira Long on 08-20-2023 Cholesterol in HDL [Mass/Vol] 45 mg/dL >40 [facility] Comment on above: The drugs N-Acetylcy steine and Metamizole may falsely depress this assay. Reference Range HDL <40 mg/dL Low HDL Cholesterol HDL >or= 60 mg/dL High HDL Cholesterol Serum or plasma cholesterol in VLDL measurement (mass/volume)Ordered By: Cira Long on 08-20-2023 Cholesterol in VLDL [Mass/Vol] 19 mg/dL 5-40 [facility] Serum or plasma creatinine m easurement (mass/volume)Ordered By: Cira Long on 08-20-2023 Creatinine [Mass/Vol] 1.49 mg/dL 0.70-1.30 [facility] Comment on above: The validity of the calculated GFR & GFRAA in patients over 70 years has not been determined. Clinical correlation is essential. Serum or plasma low density lipoprotein (LDL) cholesterol measurement (mass/volume)Ordered By: Cira Long on 08-20-2023 Cholesterol in LDL [Mass/Vol] 81 mg/dL 0-130 [facility] Serum or plasma urea nitroge n measurement (mass/volume)Ordered By: Cira Long on 08-20-2023 Urea nitrogen [Mass/Vol] 22 mg/dL 7-18 [facility] Thin prep Papanicolaou smear with manual screeningOrdered By: Cira Long on 08-20-2023 Thin prep Papanicolaou smear with manual screening 23 U/L 15-37 [facility] Thin prep Papanicolaou smear with manual screening 3 5-15 [facility] Whole blood hemoglobin A1c/t otal hemoglobin ratio (mass fraction)Ordered By: Cira Long on 08-20-2023 HbA1c (Bld) [Mass fraction] 6.3 % 3.8-5.6 [facility] Comment on above: Normal < 5.7 % Predi abetic 5.7 - 6.4 % Diabetic >or= 6.5 % Please note range changes. Absolute lymphocyte counton 12-11-2021 Lymphocytes Auto (Unsp spec) [#/Vol] 2.77 10*3/uL 0.83-4.51 [facility] Work Phone: Basophil percentageon 2021 Basophils/100 WBC (Bld) 0.8 % 0-1 [facility] Work Phone: [phone] Bilirubin [Mass/Vol] 0.70 mg/dL 0.20-1.00 [facility] Work Phone: Comment on above: For patients on eltr ombopag therapy, use of Dimension [place] TBIL is not recommended. Chloride [Moles/Vol] 106 mmol/L 98-107 [facility] Work Phone: [phone] Cholesterol [Mass/Vol] 148 mg/dL <200 [facility] Work Phone: Comment on above: <200 mg/dL Desirable 200-240 mg/dL Borderline >240 mg/dL High Risk Eosinophils/100 WBC (Bld) 4.5 % 0-5 [facility] Work Phone: [phone] Glucose [Mass/Vol] 136 mg/dL 74-106 [facility] Work Phone: Comment on above: Fasting Glucose resu lt greater than or equal to 126 mg/dL suggests DIABETES MELLITUS per A.D.A. criteria. Neutrophils (Bld) [#/Vol] 5.6 10*3/uL 2.0-7.7 [facility] Work Phone: [phone] Neutrophils/100 WBC (Bld) 58.1 % 47-70 [facility] Work Phone: [phone] Potassium [Moles/Vol] 4.3 mmol/L 3.5-5.1 [facility] Work Phone: [phone] Protein [Mass/Vol] 7.2 g/dL 6.4-8.2 [facility] Work Phone: [phone] Sodium [Moles/Vol] 140 mmol/L 136-145 [facility] Work Phone: [phone] Triglyceride [Mass/Vol] 129 mg/dL [facility] Work Phone: Comment on above: The drugs N-Acetylcy steine and Metamizole may falsely depress this assay.Serum Triglycerides Reference Interval Normal <150 mg/dL Borderline high 150 - 199 mg/dL High 200 - 499 mg/dL Very High > or = 500 mg/dL WBC (Bld) [#/Vol] 9.6 10*3/uL 4.4-11.0 [facility] Work Phone: Blood erythrocytes count (nu mber/volume)on 12-11-2021 RBC (Bld) [#/Vol] 5.11 10*6/uL 4.6-6.2 [facility] Work Phone: Blood hemoglobin measurement (mass/volume)on 12-11-2021 Hemoglobin (Bld) [Mass/Vol] 14.7 g/dL 13.0-16.5 [facility] Work Phone: Blood lymphocytes/100 leukoc yteson 12-11-2021 Lymphocytes/100 WBC (Bld) 28.9 % 19-41 [facility] Work Phone: Blood monocytes/100 leukocyt eson 12-11-2021 Monocytes/100 WBC (Bld) 7.4 % 0-10 [facility] Work Phone: Blood platelet mean volumeon 12-11-2021 Platelet mean volume (Bld) [Entitic vol] 10.9 fL 6.2-12.0 [facility] Work Phone: Determination of erythrocyte mean corpuscular volume (MCV)on 12-11-2021 MCV (RBC) [Entitic vol] 88.6 fL 80-94 [facility] Work Phone: Direct bilirubinon 2 Bilirubin.direct [Mass/Vol] 0.12 mg/dL 0.00-0.30 [facility] Work Phone: Hematocrit Auto (Bld) [Volum e fraction]on 12-11-2021 Hematocrit (Bld) [Volume fraction] 45.3 % 40-54 [facility] Work Phone: Laboratory - Chemistry and C hemistry - challengeon 12-11-2021 ALP [Catalytic activity/Vol] 85 U/L 45-117 [facility] Work Phone: ALT [Catalytic activity/Vol] 46 U/L 16-61 [facility] Work Phone: CO2 [Moles/Vol] 28.0 mmol/L 21.0-32.0 [facility] Work Phone: Globulin (S) [Mass/Vol] 3.9 g/dL 2.2-4.2 [facility] Work Phone: Urea nitrogen/Creatinine [Mass ratio] 14.8 mg/mg 10-20 [facility] Work Phone: Laboratory - Hematology and Cell countson 12-11-2021 Erythrocyte distribution width (RBC) [Entitic vol] 45.6 fL 35.1-43.9 [facility] Work Phone: Erythrocyte distribution width (RBC) [Ratio] 14.0 % 11.6-14.6 [facility] Work Phone: Immature granulocytes/100 WBC (Bld) 0.300 % 0.0-0.9 [facility] Work Phone: Comment on above: IG% - Immature Granu locytes (promyelocytes, myelocytes and metamyelocytes) > 1% indicates that a LEFT SHIFT is Present. MCH (RBC) [Entitic mass] 28.8 pg 27.0-32.0 [facility] Work Phone: Nucleated RBC/100 WBC (Bld) [Ratio] 0 % 0-5 [facility] Work Phone: MCHC Auto (RBC) [Mass/Vol]on 12-11-2021 MCHC (RBC) [Mass/Vol] 32.5 g/dL 32-36 [facility] Work Phone: No Panel Informationon 12-11 Estimated GFR (MDRD) Amer 61 mL/min >60 [facility] Work Phone: Comment on above: GFR Calc Estimated GFR (MDRD) Non-Af Amer 50 mL/min >60 [facility] Work Phone: Comment on above: Non- GFR Calc Prostate Specific Antigen Screen 3.38 ng/mL 0.00-4.00 [facility] Work Phone: Comment on above: This test was perfor med using the TPSA assay method for [employer] chemistry system. Values obtained with differentassay methods cannot be used interchangably.When changing PSA assays in the course of monitoring apatient, additional sequential testing should be carriedout to confirm baseline values. Thyroid Stimulating Hormone (TSH) 0.72 uIU/mL 0.358-3.74 [facility] Work Phone: Vitamin D 25-Hydroxy 34.7 ng/mL [facility] Work Phone: Comment on above: Vitamin D 25(OH) Sta tus Range Deficiency <20 ng/mL (50nmol/L) Insufficiency 20 - 30 ng/mL (50 - 75 nmol/L) Sufficiency 30 - 100 ng/mL (75 - 250 nmol/L) Toxicity >100 ng/mL (>250 nmol/L) Platelets bldon 12-11-2021 Platelets (Bld) [#/Vol] 380 10*3/uL 150-450 [facility] Work Phone: Serum or plasma albumin kia urement (mass/volume)on 12-11-2021 Albumin [Mass/Vol] 3.3 g/dL 3.2-5.0 [facility] Work Phone: Serum or plasma albumin/glob ulin mass ratioon 12-11-2021 Albumin/Globulin [Mass ratio] 0.8 {ratio} 0.9-2.4 [facility] Work Phone: Serum or plasma calcium kia urement (mass/volume)on 12-11-2021 Calcium [Mass/Vol] 9.1 mg/dL 8.5-10.1 [facility] Work Phone: Serum or plasma cholesterol in HDL measurement (mass/volume)on 12-11-2021 Cholesterol in HDL [Mass/Vol] 42 mg/dL [facility] Work Phone: Comment on above: The drugs N-Acetylcy steine and Metamizole may falsely depress this assay. Reference Range HDL <40 mg/dL Low HDL Cholesterol HDL >or= 60 mg/dL High HDL Cholesterol Serum or plasma cholesterol in VLDL measurement (mass/volume)on 12-11-2021 Cholesterol in VLDL [Mass/Vol] 26 mg/dL 5-40 [facility] Work Phone: Serum or plasma creatinine m easurement (mass/volume)on 12-11-2021 Creatinine [Mass/Vol] 1.49 mg/dL 0.70-1.30 [facility] Work Phone: Comment on above: The validity of the calculated GFR & GFRAA in patients over 70 years has not been determined. Clinical correlation is essential. Serum or plasma low density lipoprotein (LDL) cholesterol measurement (mass/volume)on 12-11-2021 Cholesterol in LDL [Mass/Vol] 80 mg/dL 0-130 [facility] Work Phone: Serum or plasma urea nitroge n measurement (mass/volume)on 12-11-2021 Urea nitrogen [Mass/Vol] 22 mg/dL 7-18 [facility] Work Phone: Thin prep Papanicolaou smear with manual screeningon 12-11-2021 Thin prep Papanicolaou smear with manual screening 22 U/L 15-37 [facility] Work Phone: Thin prep Papanicolaou smear with manual screening 6 5-15 [facility] Work Phone: Whole blood hemoglobin A1c/t otal hemoglobin ratio (mass fraction)on 12-11-2021 HbA1c (Bld) [Mass fraction] 6.6 % 3.8-5.6 [facility] Work Phone: Comment on above: Normal < 5.7 % Predi abetic 5.7 - 6.4 % Diabetic >or= 6.5 % Please note range changes. Donya 01-20-2018 CNOV Office Visit (AGCARDWST) ----REYFAMILIAHAILEY CAPONE ([id number]) 1955 M INTDate Time Provider Department01/20/18 3:00 PM JAMEY LAM AGCARDWST During your visit today, we recorded the following information about you: Pulse Respiration Blood pressure 68/minute 18/minute 135/83Jamey Lam 01/20/2018 3:32 PM SignedLIFESTYLE CHANGEA healthy lifestyle is the most important component of your overall treatmentplan. Please give serious thought to the following areas and commit to makinglong term changes.EAT A WHOLE FOOD, PLANT BASED DIETThe nutrition your body gets is more important than the medicine you take.What matters most is the overall way you eat. We encourage you to minimize theuse of animal products (which include dairy and all meats except fatty fish)and use whole, unprocessed plant foods to provide your protein, vitamins andother nutrients. We have a lot of information to share with you on this topic.This is not a diet. It is a way of life that you will keep with you.EXERCISE REGULARLYIt is not important to spend hours in the gym, lifting weights and perspiringheavily. A total of 2-3 hours per week of aerobic (causing you to bemoderately short of breath) exercise is sufficient to improve your health.Talk to us before you begin a new exercise program, if you have heart diseaseor experience shortness of breath or chest pain.REDUCE STRESSChronic emotional and physical stress leads to disease. Ways of reducingstress include meditation, visualization, prayer, yoga and other forms ofrelaxation therapy. Consistency is the hernandez. Find a technique that works foryou and do it every day.CULTIVATE RELATIONSHIPSLoneliness and isolation have a major negative impact on health. Seek outothers who can love, care for and nurture you. Avoid hurtful relationships.MAINTAIN IDEAL BODY WEIGHTThe best way to do this is to do all the things above. Our bodies naturallyfind the right weight if we keep moving and feed ourselves the right food. Ifyour BMI is greater than 25, we strongly recommend a referral to a weightmanagement program. Please speak to us or your family physician aboutavailable programs.AVOID NICOTINE IN ALL FORMSThis includes all tobacco products, whether chewed, smoked, vaped, or rubbed onthe skin. Smoking cessation programs, which can make use of tobaccosubstitutes, medications to suppress cravings and behavior management, areavailable. Please contact your family physician about programs in your area.Carole Jamey E 01/20/2018 3:55 PM SignedPERTINENT CARDIAC HISTORYASHD - PCI LAD, RCA 2006HLHTNADHERENCE TO GUIDELINESACE-I or ARB for HF with prior LVEF<40 (NQF 0081) - N/AASA or Plavix for ASHD (NQF 0067) - metBeta marco a for ASHD with prior [place] or prior LVEF<40 (NQF 0070) - N/ABeta marco a for HF with prior LVEF<40 (NQF 0083) - N/AACE-I or ARB for ASHD with DM or prior LVEF<40 (NQF 0066) - N/AStatin therapy for ASHD or FHL or DM - metBMI documented and plan if >25 (NQF 0421) - lifestyle recommendation formTobacco use screening and referral (NQF 0028) - lifestyle recommendation formRecommendation for whole food, plant based diet - lifestyle recommendation formCLINICAL IMPRESSION/PLAN:Hailey Grossman is doing well. He's been advised to continue his currentmedication. I have encouraged him to eliminate processed food from his diet andcontinue his weight loss and exercise program.I will see him in 12 months. At that time, he will undergo stressechocardiogram for follow-up of his ischemic heart disease, as it has beenalmost 10 years since his last stress test.Written and verbal health teaching given to patient, patient verbalizesunderstanding and agrees with treatment plan.DIAGNOSIS FOR VISIT:[facility] [place] returns for follow-up of his coronary disease. He has lostover 12 pounds. He reports stable exercise tolerance. He's had no orthopnea oredema. He denies syncope, palpitations, TIAs, amaurosis and claudication.He has not been eating much meat or dairy, but has been eating a lot ofprocessed foods and sweets.ALLERGIES:ALLERGIESAll ergen Reactions- PenicillinsCURRENT OUTPATIENT MEDICATIONS:metoprolol succinate ER (TOPROL XL) 50 mg 24 hr tablet TAKE ONE TABLET BY MOUTHONCE A DAY.atorvastatin (LIPITOR) 80 mg tablet TAKE 1/2 TABLET BY MOUTH DAILYlisinopril-hydrochloroth iazide (PRINZIDE,ZESTORETIC) 20-12.5 mg per tablet Take1 tablet by mouth once daily. medication changelevothyroxine (SYNTHROID) 125 mcg tablet Take 1 tablet by mouth once daily.Take on empty stomach. For Thyroidnitroglycerin sublingual (NITROQUICK) 0.4 mg SL tablet Dissolve 1 tablet underthe tongue as needed. FOR CHEST PAIN. IF NO RELIEF CALL 911ASPIRIN 81 MG TAB Take one (1) tablet daily .PHYSICAL EXAMINATION:VITAL SIGNS: 135/83, 68, 18Chest: Clear to percussion and auscultation. Trachea is midline. Air entry isequal. Cardiac: Regular rhythm. S1 and S2 are normal. PMI is nondisplaced.There are no murmurs, rubs or gallops. Carotids are brisk without bruits.JVP is less than 10 cm. Abdomen: Soft and nontender. There are no pulsatilemasses or bruits. No liver enlargement. Bowel sounds are active.Extremities: No edema. Pulses are intact and symmetrical.Recent labs were reviewed. Renal function is normal. TSH was slightly elevated.LDL was 78.EKG shows sinus rhythm with first degree AV block. There is no change since05/22/16.Electronically Signed:Manuela Winters 2017 3:51 PMCC: Thee Mahoney IIIReferring Provider: JAMEY LAM [[id number]]Allergies As of Date: 01/20/2018 Noted Allergy ReactionPENICILLINS 06/10/2006Date Reviewed: 01/20/2018Reviewed by: Alessandro Vanessa (Cliff) - Fully AssessedReason for Visit: Established Patient [175] Cmt: ASHDReason For Visit History RecordedPrimary Visit Diagnosis:ASHD (arteriosclerotic heart disease) [I25.10] Other Visit Diagnosis:Hypertension, essential [I10]Prescriptions as of 01/20/2018 Sig: METOPROLOL SUCCINATE ER 50 MG* TAKE ONE TABLET BY MOUTH ONCE* ATORVASTATIN 80 MG TABLET TAKE 1/2 TABLET BY MOUTH DAILY LISINOPRIL 20 MG-HYDROCHLOROT* Take 1 tablet by mouth once d* LEVOTHYROXINE 125 MCG TABLET Take 1 tablet by mouth once d* NITROGLYCERIN 0.4 MG SUBLINGU* Dissolve 1 tablet under the t* ASPIRIN 81 MG TABLET Take one (1) tablet daily .Problem List As Of Date 01/20/2018 Noted Resolved CHEST PAIN NOS [R07.9] INVALID FOR*12/25/2006 TOX MULTNOD GOIT NO DIMITRI [E05.20] INVALID FOR*12/11/2007 Postablative hypothyroidism [E89.0] INVALID FOR* DYSMETABOLIC SYNDROME X [E88.81] INVALID FOR* Essential hypertension [I10] INVALID FOR* ASHD (arteriosclerotic heart disease) [I25.10] INVALID FOR* Hyperlipidemia LDL goal <100 [E78.5] INVALID FOR* Controlled type 2 diabetes mellitus without com*INVALID FOR* More... BPH without obstruction/lower urinary tract sym*INVALID FOR* Colon cancer screening [Z12.11] INVALID FOR* More... Other instructions from your clinician: LIFESTYLE CHANGE A healthy lifestyle is the most important component of your overall treatment plan. 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 EAT A WHOLE FOOD, PLANT BASED DIET The nutrition your body gets is more important than the medicine you take. What matters most is the overall way you eat. We encourage you to minimize the use of animal products (which include dairy and all meats except fatty fish) and use whole, unprocessed plant foods to provide your protein, vitamins and other nutrients. We have a lot of information to share with you on this topic. This is not a diet. It is a way of life that you will keep with you. EXERCISE REGULARLY It is not important to spend hours in the gym, lifting weights and perspiring heavily. A total of 2-3 hours per week of aerobic (causing you to be moderately short of breath) exercise is sufficient to improve your health. Talk to us before you begin a new exercise program, if you have heart disease or experience shortness of breath or chest pain. REDUCE STRESS Chronic emotional and physical stress leads to disease. Ways of reducing stress include meditation, visualization, prayer, yoga and other forms of relaxation therapy. Consistency is the hernandez. Find a technique that works for you and do it every day. CULTIVATE RELATIONSHIPS Loneliness and isolation have a major negative impact on health. Seek out others who can love, care for and nurture you. Avoid hurtful relationships. MAINTAIN IDEAL BODY WEIGHT The best way to do this is to do all the things above. Our bodies naturally find the right weight if we keep moving and feed ourselves the right food. If your BMI is greater than 25, we strongly recommend a referral to a weight management program. Please speak to us or your family physician about available programs. AVOID NICOTINE IN ALL FORMS This includes all tobacco products, whether chewed, smoked, vaped, or rubbed on the skin. Smoking cessation programs, which can make use of tobacco substitutes, medications to suppress cravings and behavior management, are available. Please contact your family physician about programs in your area. Status:Closed by JAMEY LAM MD on 01/20/18 [facility] PROGRESSon 01-20-2018 PROGRESS HNO ID: [id number] thor: Jamey Lam EService: (none)Author Type: PhysicianType: Progress NotesFiled: 01/20/2018 3:55 PMNote Text:PERTINENT CARDIAC HISTORYASHD - PCI LAD, RCA 2006HLHTNADHERENCE TO GUIDELINESACE-I or ARB for HF with prior LVEF<40 (NQF 0081) - N/AASA or Plavix for ASHD (NQF 0067) - metBeta marco a for ASHD with prior [place] or prior LVEF<40 (NQF 0070) - N/ABeta marco a for HF with prior LVEF<40 (NQF 0083) - N/AACE-I or ARB for ASHD with DM or prior LVEF<40 (NQF 0066) - N/AStatin therapy for ASHD or FHL or DM - metBMI documented and plan if >25 (NQF 0421) - lifestyle recommendation formTobacco use screening and referral (NQF 0028) - lifestyle recommendationformRecommendat ion for whole food, plant based diet - lifestyle recommendationformCLINICAL IMPRESSION/PLAN:Hailey Ward Ngoc is doing well. He's been advised to continue his currentmedication. I have encouraged him to eliminate processed food from hisdiet and continue his weight loss and exercise program.I will see him in 12 months. At that time, he will undergo stressechocardiogram for follow-up of his ischemic heart disease, as it has beenalmost 10 years since his last stress test.Written and verbal health teaching given to patient, patient verbalizesunderstanding and agrees with treatment plan.DIAGNOSIS FOR VISIT:[facility]ORY OF PRESENT ILLNESSHailey Grossman returns for follow-up of his coronary disease. He haslost over 12 pounds. He reports stable exercise tolerance. He's had noorthopnea or edema. He denies syncope, palpitations, TIAs, amaurosis andclaudication.He has not been eating much meat or dairy, but has been eating a lot ofprocessed foods and sweets.ALLERGIES:ALLERGIESAll ergen Reactions- PenicillinsCURRENT OUTPATIENT MEDICATIONS:metoprolol succinate ER (TOPROL XL) 50 mg 24 hr tablet TAKE ONE TABLET BYMOUTH ONCE A DAY.atorvastatin (LIPITOR) 80 mg tablet TAKE 1/2 TABLET BY MOUTH DAILYlisinopril-hydrochloroth iazide (PRINZIDE,ZESTORETIC) 20-12.5 mg per tabletTake 1 tablet by mouth once daily. medication changelevothyroxine (SYNTHROID) 125 mcg tablet Take 1 tablet by mouth oncedaily. Take on empty stomach. For Thyroidnitroglycerin sublingual (NITROQUICK) 0.4 mg SL tablet Dissolve 1 tabletunder the tongue as needed. FOR CHEST PAIN. IF NO RELIEF CALL 911ASPIRIN 81 MG TAB Take one (1) tablet daily .PHYSICAL EXAMINATION:VITAL SIGNS: 135/83, 68, 18Chest: Clear to percussion and auscultation. Trachea is midline. Airentry is equal. Cardiac: Regular rhythm. S1 and S2 are normal. PMI isnondisplaced. There are no murmurs, rubs or gallops. Carotids are briskwithout bruits. JVP is less than 10 cm. Abdomen: Soft and nontender.There are no pulsatile masses or bruits. No liver enlargement. Bowelsounds are active. Extremities: No edema. Pulses are intact andsymmetrical.Recent labs were reviewed. Renal function is normal. TSH was slightlyelevated. LDL was 78.EKG shows sinus rhythm with first degree AV block. There is no changesince 05/22/16.Electronically Signed:Jamey Lam, Eny 2017 3:51 PMCC: Cebul, Thee A III Normal [facility] Vital Signs Date Time Vital Sign Value Performing Clinician Jim vargas 08-19-2023 12:59-0500 Body height 166.[address] Cira Long Work Phone: [facility] 08-19-2023 12:59-0500 Body mass index (BMI) [Ratio] 36.7 kg/m2 Dr. Cira Long Work Phone: [facility] 08-19-2023 12:59-0500 Body temperature 97.8 [degF] Dr. Cira Long Work Phone: [facility] 08-19-2023 12:59-0500 Body weight 101.[address] Cira Long Work Phone: [facility] 08-19-2023 12:59-0500 Diastolic blood pressure 85 mm[Hg] Dr. Cira Long Work Phone: [facility] 08-19-2023 12:59-0500 Heart rate 97 /min Dr. Cira Long Work Phone: [facility] 08-19-2023 12:59-0500 Respiratory rate 16 /min Dr. Cira Long Work Phone: [facility] 08-19-2023 12:59-0500 SaO2% (BldA) [Mass fraction] 95 % Dr. Cira Long Work Phone: [facility] 08-19-2023 12:59-0500 Systolic blood pressure 149 mm[Hg] Dr. Cira Long Work Phone: [facility] 12-12-2021 09:29-0400 Body height 166.[address] Cira Long Work Phone: [facility] Work Phone: 12-12-2021 09:29-0400 Body mass index (BMI) [Ratio] 38.9 kg/m2 Dr. Cira Long Work Phone: [facility] Work Phone: 12-12-2021 09:29-0400 Body temperature 96.3 [degF] Dr. Cira Long Work Phone: [facility] Work Phone: 12-12-2021 09:29-0400 Body weight 107.[address] Cira Long Work Phone: [facility] Work Phone: 12-12-2021 09:29-0400 Diastolic blood pressure 82 mm[Hg] Dr. Cira Long Work Phone: [facility] Work Phone: 12-12-2021 09:29-0400 Heart rate 69 /min Dr. Cira Long Work Phone: [facility] Work Phone: 12-12-2021 09:29-0400 Respiratory rate 16 /min Dr. Cira Long Work Phone: [facility] Work Phone: 12-12-2021 09:29-0400 SaO2% (BldA) [Mass fraction] 98 % Dr. Cira Long Work Phone: [facility] Work Phone: 12-12-2021 09:29-0400 Systolic blood pressure 132 mm[Hg] Dr. Cira Long Work Phone: [facility] Work Phone: Encounters Encounter Date Encounter Type Care Provider Facility Start: 10-07-2024 End: 10-07-2024 ambulatory Nicholas Lopez Facility:[facility] Start: 03-17-2024 End: 03-17-2024 ambulatory Cira Long Facility:[facility] Start: 08-20-2023 End: 08-20-[address] Cira Long Work Phone: [facility] Work Phone: Start: 08-20-2023 End: 08-20-[address] Cira Long Work Phone: [facility] Work Phone: Start: 08-19-2023 End: 08-19-[address] Cira Long Work Phone: [facility] [place] Work Phone: Start: 12-12-2021 End: 12-12-[address] Cira Long Work Phone: [facility] Start: 12-11-2021 End: 12-11-[address] Cira Long Work Phone: [facility] [place] Start: 12-05-2021 Refill Kvng CRUMP RN.EXECUTIVE TALENT ACQUISITION CONSULTANT, DNP Work Phone: [facility] Comment on above: Refill Request Start: 07-04-2020 End: 07-04-2020 ambulatory THEE A CEBUL III [facility] Start: 01-20-2019 Ambulatory THEE CEBUL Facility:[facility] Start: 01-20-2018 End: 01-20-2018 Ambulatory THEE CEBUL Facility:[facility] Procedures Date Procedure Procedure Detail Performing Clinician Start: 01-09-2019 Adult depression screening assessment Kvng Potter APRN.EXECUTIVE TALENT ACQUISITION CONSULTANT, DNP Work Phone: Plan of Treatment Date Care Activity Detail Author Start: 01-09-2029 Urine microalbumin profile DTA P,TDAP,TD (2 - Td or Tdap) [facility] Start: 01-07-2024 PROSTATE CANCER SCRE ENING DISCUSSION PROSTATE CANCER SCREENING DISCUSSION [facility] Start: 09-16-2021 ADVANCE DIRECTIVE DISCUSSION ADVANCE DIRECTIVE DISCUSSION [facility] Start: 07-04-2021 3 comp foot exam completed DIABETIC FOOT EXAM [facility] Start: 07-04-2021 ANNUAL PCP TEAM CERTIFIED SURGICAL TECH/FIRST ASSISTANT SAMANTHA DISEASE VISIT ANNUAL PCP TEAM CHRONIC DISEASE VISIT [facility] Start: 07-04-2021 Hepatitis B screening URINE AL BUMIN:CREATININE RATIO [facility] Start: 07-04-2021 Hepatitis B surface antibody level LDL CHOLESTEROL [facility] Start: 05-17-2021 Influenza vaccination INFLUENZA (#1) [facility] Start: 04-25-2021 Hepatitis C antibody , confirmatory test DILATED RETINAL EXAM [facility] Start: 2021 PNEUMOVAX AGE 65 AND OVER WITH 5YR LOOKBACK (#1) PNEUMOVAX AGE 65 AND OVER WITH 5YR LOOKBACK (#1) [facility] Start: 01-02-2021 Hemoglobin A1c/Hemoglobin.total in Blood HBA1C [facility] Start: 01-10-2020 Adult depression scr eening assessment DEPRESSION SCREENING [facility] Start: 2006 SHINGRIX VACCINE (1 of 2) SHINGRIX V ACCINE (1 of 2) [facility] Start: 2001 COLOGUARD (FIT-DNA) COLOGUARD (FIT-D NA) [facility] Start: 2001 Colonoscopy COLONOSCOPY [facility] Start: 2001 COLORECTAL CANCER SCREENING COLORECTAL CANCER SCREENING [facility] Start: [address] COLONOGRAPHY [facility] Start: 2001 FECAL OCCULT BLOOD FECAL OCCULT BLOO D [facility] Start: 2001 SIGMOIDOSCOPY SIGMOIDOSCOPY [facility] Start: 1974 BP CONTROLLED (<130/80) BP CONTROLLE D (<130/80) [facility] Start: 1974 HIV SCREENING HIV SCREENING [facility] Start: 1961 COVID-19 VACCINE (1) COVID-19 VACCIN E (1) [facility] Immunizations Immunization Date Immunization Notes Care Provider Destin mei 12-16-2020 Covid (Pfizer) Dr. Cira lopez Work Phone: [facility] 11-25-2020 Covid (Pfizer) Dr. Cira lopez Work Phone: [facility] 01-09-2019 tetanus toxoid, redu mirta diphtheria toxoid, and acellular pertussis vaccine, adsorbed Kvng Potter APRN.OTIS, TONIO Work Phone: [facility] Work Phone: 10-30-2017 influenza, injectabl e, quadrivalent, contains preservative Kvng Potter APRN.TONIO BERG Work Phone: [facility] Payers Date Payer Category Payer Self-pay [id number] [id number] 2024 Unknown [id number] 2021 Private Health Insurance [employer]NA GALANA OAP [id number] 2021-Present [phone] [address] [place] [address] Open Access [id number] 2019 Private Health Insurance [id number] 2012 Unknown SELF PAY INSURANCE [id number] Unknown [id number] Unknown [id number] Social History Date Type Detail Facility Tobacco smoking stat us NHIS Never smoked tobacco [facility] Start: 07-04-2020 Alcohol intake Current drinke r of alcohol (finding) [facility] Start: 01-20-2018 History SDOH Alcohol Comment 4 oz wine once per month [facility] Start: 1955 Sex Assigned At Not on file [facility] Start: 12-12-2021 End: 08-19-2023 Tobacco smoking status NHIS Unknown if ever smoked [facility] Start: 1955 Sex Assigned At Male [facility] Note 12-05-2021 Telephone Encounter - Kvgn Potter APRN.TONIO BERG - 12/05/2021 12:00 PM EDTTelephone Encounter - Mariam Plasencia LPN - 12/05/2021 11:23 AM EDT Note Date & Type Note Facility 12-05-2021 Miscellaneous Notes Team: Inform the patient I am only providing him a 30-day prescription of medication. He needs to establish with a new healthcare provider here at the clinic to receive any further medication refills. He was told this 3 months ago. This will be his last medication refill until he sees a provider here at the clinic. The following approved medication requests have been transmitted electronically. Pending Prescriptions Disp Refills LEVOTHYROXINE 125 MCG TABLET 30 tablet 0 Sig: TAKE 1 TABLET BY MOUTH ONCE DAILY. TAKE ON EMPTY STOMACH. FOR THYROID. DAVID: Yes Kvng Potter APRN.TONIO BERG Attempted to reach pt to advise needs to schedule a new pcp apt. Mailbox was full. Patient has been identified by name and date of : Yes Pharmacy phones for refill(s): Pending Prescriptions Disp Refills LEVOTHYROXINE 125 MCG TABLET 90 tablet 0 Sig: TAKE 1 TABLET BY MOUTH ONCE DAILY. TAKE ON EMPTY STOMACH. FOR THYROID. DAVID: Yes Date of last office visit in primary care: 07/04/20 Last 2 Encounter Wt Readings: Date: Wt: 07/04/2020 102.5 kg (226 lb) 01/20/2019 107.8 kg (237 lb 11.2 oz) Previous labs/tests for medication: Thyroid: TSH (uU/mL) Date Value 01/06/2019 1.320 Please advise. Thank you. 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 07/02/2006 12/11/2007 Chest pain, unspecified 06/24/2006 12/26/19 07 documented as of this encounter (statuses as of 12/05/2021) [facility] Evaluation note 06-16-2006 Note Date & Type Note Facility 06-16-2006 Evaluation note Diagnosis Onset Date Atherosclerotic heart diseas e of [place] coronary artery without angina pectoris acute Essential hypertension acute Hypothyroidism acute Presence of stent in coronar y artery June, acute [facility] lesion [facility] Evaluation note Note Date & Type Note Facility Evaluation note Diagnosis Postablative hypothyroidism Other postablative hypothyroidism documented in this encounter [facility] Evaluation note Note Date & Type Note Facility Evaluation note Diagnosis Onset Date Atherosclerotic heart diseas e of [place] coronary artery without angina pectoris acute Essential hypertension acute Hypothyroidism acute Pure hypercholesterolemia [place] Skin lesion acute Type 2 diabetes mellitus acu [facility] Work Phone: Summary Purpose Family History No Family History Records Found Relationship Condition Age at Onset Recorded Date/T tony mother Diabetes mellitus Unknown brother Coronary artery disease Unknown History of coronary artery bypass surgery 44 father Coronary artery disease Unknown Hypertension Unknown sister Multiple sclerosis Unknown Advance Directives No Advanced Directives Records Found Advance Directive Response Recorded Date/ Time Living Will Yes June 29 10:27am Power of Cheese Wrapper Yes June 29, 2021 10:27am Advance Directive Response Recorded Date/ Time Living Will Yes June 29 9:27am Power of Cheese Wrapper Yes June 29, 2021 9:27am Chief Complaint and Reason for Visit Chief Complaint CHECK UP, MEDS Reason for Visit Atherosclerotic hear t disease of [place] coronary artery without angina pectoris Essential hypertension Hypothyroidism Pure hypercholesterolemia Skin lesion Type 2 diabetes mellitus Chief Complaint Annual E ORDERS Reason for Visit Atherosclerotic hear t disease of [place] coronary artery without angina pectoris Essential hypertension Hypothyroidism Presence of stent in coronary artery Skin lesion Type 2 diabetes mellitus Additional Source Comments (unrecognized sect ion and content) No Status Records FoundNo Status Records FoundNo Status Records FoundNo Status Records Found INFORMATION SOURCE (unrecogn ized section and content) DATE CREATED AUTHOR 03/20/2018 [facility] DATE CREATED AUTHOR AUTHOR'S ORGANIZ ATION 03/20/2018 [facility] DATE CREATED AUTHOR AUTHOR'S ORGANIZ ATION 02/16/2024 [facility] DATE CREATED AUTHOR AUTHOR'S ORGANIZ ATION 10/31/2024 [facility] Source Comments (unrecognize d section and content) In the event this informatio n is protected by the Federal Confidentiality of Alcohol and Drug Abuse Patient Records regulations: The Federal rules restrict any use of the information to criminally investigate or prosecute any alcohol or drug abuse patient.[facility] Reason for Visit (unrecogniz ed section and content) Reason Comments Refill Request Care Teams (unrecognized sec tion and content) Sales Route Driver Relationship Specialty Start Date End Date Thee Mahoney III, MD NO FORWARDING ADDRESS PCP - General 12/29/02 Team Status: Active Member Role Status Dates Dr. Thee Mahoney III, MD Family Provider Active Dr. Cira Long MD Primary Care Provider Active Team Status: Inactive Member Role Status Dates Dr. Cira Long MD Primary Care Provider, Attendi ng Provider Active Team Status: Inactive Member Role Status Dates Dr. Cira Long MD Primary Care Pro vider, Attending Provider, Referring Provider Active Goals (unrecognized section and content) Goals may be documented in a n alternate sectionGoals may be documented in an alternate section FOR RECORDS PERTAINING TO PATIENTS WHO ARE OR HAVE BEEN ENROLLED IN A CHEMICAL DEPENDENCY/SUBSTANCEABUSE PROGRAM, SOME INFORMATION MAY BE OMITTED. This clinical summary was aggregated from multiple sources. Caution should be exercised in using it in the provision of clinical care. This summary normalizes information from multiple sources, and as a consequence, information in this document may materially change the coding, format and clinical context of patient data. In addition, data may be omitted in some cases. CLINICAL DECISIONS SHOULD BE BASED ON THE PRIMARY CLINICAL RECORDS. [employer] [facility]. provides no warranty or guarantee of the accuracy or completeness of information in this document.
== END | disposition home or self-care (01) ==
LOC: POLAB3 10:09
PROVIDERS: PCP Family Medicine Geriatric Medicine; Visit Provider Family Medicine Geriatric Medicine
DX: E11.65 Type 2 diabetes mellitus with hyperglycemia (principal); I10 Essential (primary) hypertension; E55.9 Vitamin D deficiency, unspecified
CPT/HCPCS: 36415; 80053; 82306; 84443; 85025

== ENCOUNTER → 2025-04-27 | Outpatient (CLI) | payer BC, SELFPAY ==
[2025-04-27 13:22] LABS: AST(SGOT) 30 U/L (<=37); Alanine Aminotransfer ALT/SGPT 29 U/L (<=46); Albumin, Serum 4.1 g/dL (3.4-4.8); Alkaline Phosphatase 70 U/L (40-129); Bilirubin, Direct 0.18 mg/dL (0.00-0.30); Cholesterol 133 mg/dL (<=200); Globulin 3.2 g/dL (2.2-4.2); Low Density Lipoprotein Calc. 63 mg/dL; Triglycerides 88 mg/dL; Very Low Density Lipoprotein 18 mg/dL (5-40); cholesterol:hdl ratio screen 2.55
== END | disposition home or self-care (01) ==
LOC: LAB 11:38
PROVIDERS: PCP Family Medicine Geriatric Medicine; Referring Provider Student in an Organized Health Care Education/Training Program; Visit Provider Student in an Organized Health Care Education/Training Program
DX: I25.10 Atherosclerotic heart disease of native coronary artery without angina pectoris (principal); E78.00 Pure hypercholesterolemia, unspecified
CPT/HCPCS: 36415; 80061; 80076

== ENCOUNTER → 2025-06-08 | Outpatient (CLI) | payer BC, SELFPAY ==
--- NOTE | 2025-06-08 13:26 | US_ITS ---
PROCEDURE: KIDNEY AND BLADDER 06/08/2025 REASON FOR EXAM: CHRONIC KIDNEY DISEASE, STAGE 3A TECHNIQUE: Procedure Code: USKI Modality: US Procedure: KIDNEY AND BLADDER COMPARISON: None FINDINGS: Right kidney measures 10.1 cm and left kidney measures 10.3 cm. Normal echotexture of bilateral kidneys. No hydronephrosis. No renal stones. Urinary bladder is unremarkable. Prostate measures 3.8 x 4.6 x 3.5 cm. 31 mL. US/Kidney and Bladder IMPRESSION: No hydronephrosis. Reading Location: [id number]
== END | disposition home or self-care (01) ==
LOC: US 13:25
PROVIDERS: PCP Family Medicine Geriatric Medicine; Referring Provider Internal Medicine Nephrology; Visit Provider Internal Medicine Nephrology
DX: N18.31 Chronic kidney disease, stage 3a (principal)
CPT/HCPCS: 76770